=== PATIENT | male | born 1945 | race Caucasian/White ===

== ENCOUNTER → 2019-10-15 10:52 | Outpatient (BNVA) | payer OTHER, SELFPAY | PROVIDERS: Visit Provider Internal Medicine | DX: Z11.59 Encounter for screening for other viral diseases (principal) | CPT/HCPCS: 87635 ==

== ENCOUNTER 2020-03-22 10:24 | Outpatient (CLI) | payer OTHER, SELFPAY ==
--- NOTE | 2020-03-22 10:51 | MR_ITS ---
WS: [id number] MRI HEAD WITHOUT CONTRAST TECHNIQUE: Sagittal T1, T2 axial, T2 axial FLAIR, axial and coronal T1 images, axial susceptibility w eighted imaging, axial diffusion weighted images, and coronal T2 images were obtained. CLINICAL INFORMATION: HEADACHES COMPARISON: None. FINDINGS: No evidence of restricted diffusion to suggest acute ischemia. Ventricular system and basal cisterns are patent. Mild small vessel changes. Moderate parenchymal volume loss. Normal posterior fossa. Norm al vascular flow voids at the skull base. No extra axial fluid collections. No evidence of mass or ma ss effect. Mastoid air cells well aerated. Mild mucosal thickening in the ethmoid air cells. No hemos iderin on the susceptibly weighted images. Normal optic chiasm and pituitary infundibulum. Mild symmetric atrophy involving the temporal lobes a nd hippocampal formations. MR/MR head wo con* [id number] IMPRESSION: 1. No evidence of restricted diffusion to suggest acute ischemia. 2. Mild small vessel changes. Moderate parenchymal volume loss. 3. Mild mucosal thickening paranasal sinuses. Mastoid air cells well aerated. 4. No hemosiderin on the susceptibly weighted images. 5. Mild symmetric atrophy involving the temporal lobes and hippocampal formati ons.
--- NOTE | 2020-03-22 10:51 | MR_ITS ---
WS: [id number] MRA HEAD TECHNIQUE: Axial 3-D TOF images obtained with axial images and axial, sagittal, and coronal 2-D refor matted images. CLINICAL INFORMATION: HEADACHES COMPARISON: None. FINDINGS: Distal vertebral arteries are patent. Basilar artery is patent. Normal vascularity to the ENGINEERING SPECIALIST territo ry bilaterally. Both ICAs are patent at the skull base. Tortuous cavernous carotid arteries. Normal vascularity to th e MOIS[place] and MCA territories bilaterally. No evidence of high-grade proximal stenosis or aneurysm. No fl ow-limiting stenosis. MR/MR angio head con [id number] IMPRESSION: Normal intracranial MRA.
== END 2020-03-22 10:25 | disposition home or self-care (01) ==
PROVIDERS: Visit Provider Family Medicine
DX: R51.9 Headache, unspecified (principal); G31.9 Degenerative disease of nervous system, unspecified
CPT/HCPCS: 70544; 70551

== ENCOUNTER → 2020-11-04 09:35 | Outpatient (BNVA) | payer OTHER, SELFPAY | PROVIDERS: Visit Provider Surgery | DX: R93.3 Abnormal findings on diagnostic imaging of other parts of digestive tract (principal); Z20.822 Contact with and (suspected) exposure to COVID-19 | CPT/HCPCS: 87635 ==

== ENCOUNTER 2020-11-09 09:26 | Day surgery (SDC) | payer OTHER, MEDICARE, SELFPAY ==
[2020-11-02 14:45] VITALS: BMI 27.9
--- NOTE | 2020-11-09 10:11 | ANES.PREANE2 ---
Pre-Anesthetic Assessment Pre-Anesthetic Assessment: Height/Weight: Height 1.78 m Weight 88.451 kg Preop Diagnosis: Screening colonoscopy Proposed Procedure: Operation Date: 11/09/20 11:15 Proposed Procedures p Colonoscopy 11333 Z12.11(Not Applicable) - Karthik Christianson MD Familial anesthetic complications: None Was Beta Wendy taken within 24 hours: N/A Was Clonidine taken within 24 hours: N/A Last intake: . 8 hrs Social: Social History: No alcohol and No tobacco Exam: Pre-Anes Outpt Exam: alert, oriented x 3, clear to auscultation bilaterally and regular rate & rhythm Airway: MP: 2 Dentition: Full Anesthetic Plan: ASA status: 1 Anesthesia: MAC Risk of > 500 ml blood loss (7ml/kg in children): No PFSH Anesthesia PFSH: Medical History Hemorrhoids Social History Smoking and tobacco status: never smoked Data Anesthesia Cardiac Studies: No Data to Display
[2020-11-09 10:55] VITALS: BP 143/74; PULSE 57; RESP 18; TEMP 36.4; O2SAT 96
[2020-11-09] MEDS: sodium chloride 0.9% 1,000 ML 30 ML IV (10:58)
--- NOTE | 2020-11-09 11:42 | P.HP_ITS ---
Same Day Surgery H&P Indication for Procedure/HPI DATE OF PROCEDURE: November 09, 2020 CHIEF COMPLAINT/INDICATIONFOR SURGICAL PROCEDURE: I am here for colonoscopy PREOP DIAGNOSIS: Screening colonoscopy PLANNED PROCEDRUE: Operation Date: 11/09/20 11:15 Proposed Procedures p Colonoscopy 77030 Z12.11(Not Applicable) - Karthik Christianson MD This is a 74 years old gentleman presents to my practice with history of diverticulosis and symptomatic hemorrhoids per his description. An attempt of a colonoscopy was done back in 2018 and according to the patient he was told that his prep was suboptimal. And he should get his colonoscopy repeated. Patient comes today also complaining of some sort of fleshy fullness at the perianal ar ea that makes it harder for him to obtain appropriate hygiene. No evidence of bleeding per rectum. No recording of colon cancer Interim history 11/09/2020 Patient comes today for screening colonoscopy ROS All systems have been reviewed negative except as per the above or per problem list Medications/Allergies* Home Medications Medication Instructions Recorded Confirmed Type lovastatin 10 mg tablet 10 mg PO DAILY 09/19/20 11/09/20 History Allergies/Adverse Reactions Allergy/AdvReac Type Severity Reaction Status Date / Time No Known Allergies Allergy Unverified 11/09/20 11:46 Current Medications: Generic Name Dose Route Start Last Admin Trade Name Freq PRN Reason Stop Dose Admin Sodium Chloride 1,000 mls @ 30 mls/hr 11/09/20 09:45 11/09/20 10:58 Sodium Chloride 0.9% IV 11/10/20 09:44 30 mls/hr .Q24H PAULY Administration Pertinent History/Comorbid Conditions* Medical History (Updated 09/22/20 @ 12:45 by Karthik Christianson MD) Hemorrhoids Social History Smoking and tobacco status: never smoked Pertinent Exam Findings alert, oriented x 3, clear to auscultation bilaterally, regular rate & rhythm and procedure specific exam findings (Abdominal examination nontender nondistended soft) Recommendations Surgery/Procedure today (Colonoscopy with possible biopsy) Coding Level of Care Code Acute Shot Tube Machine Tender for Juliano Alcaraz
[2020-11-09 12:08] VITALS: BP 106/65; PULSE 52; RESP 14; TEMP 35.9; O2SAT 95
[2020-11-09 12:20] VITALS: BP 113/60; PULSE 55; RESP 18; O2SAT 96
--- NOTE | 2020-11-09 13:58 | ANE.PACU2 ---
Inpatient post-anesthesia follow up: Airway intact: Yes Vital signs: Temperature 96.7 F Pulse Rate 55 Respiratory Rate 18 Blood Pressure 113/60 Pulse Oximetry 96 Oxygen Delivery Me thod Room Air Oxygen Flow Rate 4 Fraction of Inspir ed Oxygen Hydration adequate: Yes Nausea and vomiting: No Pain level: 1 Mental status: Baseline
== END 2020-11-09 12:34 | disposition home or self-care (01) ==
PROVIDERS: PCP Family Medicine; Visit Provider Surgery
PROC: 0DJD8ZZ Inspection of Lower Intestinal Tract, Via Natural or Artificial Opening Endoscopic (ICD-10-PCS; CPT 45378; principal; 2020-11-09 11:15)
DX: Z12.11 Encounter for screening for malignant neoplasm of colon (principal); K57.30 Diverticulosis of large intestine without perforation or abscess without bleeding; K64.4 Residual hemorrhoidal skin tags
CPT/HCPCS: 45378; 96365; J2704; J7030

== ENCOUNTER → 2021-01-17 06:34 | Day surgery (SDC) | payer OTHER, SELFPAY ==
[2021-01-16 16:22] VITALS: BMI 27.9
--- NOTE | 2021-01-17 07:40 | PC.NURSE ---
patient to be put on schedule for next wednesday 01/24 due to no ride today
== END ==
PROVIDERS: PCP Family Medicine; Visit Provider Surgery
DX: K64.4 Residual hemorrhoidal skin tags (principal); Z53.8 Procedure and treatment not carried out for other reasons

== ENCOUNTER 2021-01-30 07:53 | Day surgery (SDC) | payer OTHER, SELFPAY ==
[2021-01-25 10:17] VITALS: BMI 27.9
[2021-01-30] VITALS (8 sets, daily range): BP systolic 88–152; BP diastolic 47–76; PULSE 45–56; RESP 16–20; TEMP 36.1–36.6; O2SAT 95–99
--- NOTE | 2021-01-30 09:12 | P.HP_ITS ---
Same Day Surgery H&P Indication for Procedure/HPI DATE OF PROCEDURE: January 30, 2021 CHIEF COMPLAINT/INDICATIONFOR SURGICAL PROCEDURE: My bottom is bothering PREOP DIAGNOSIS: Posterior anal skin tag PLANNED PROCEDRUE: Operation Date: 01/30/21 09:50 Proposed Procedures p Excision of Perianal Skin Tag 15220 K64.4(Not Applicable) - Karthik Christianson MD 11/24/2020 Patient has his follow-up today via telehealth status post colonoscopy and was found to have diverticulosis and a large posterior anal skin tag. Patient reports that the skin tag has been irritating him and takes whole lot effort to clean himself well. He is interested in surgical excision. Interim history 01/30/2021 Patient comes today for exam under anesthesia and excision of perianal skin tag ROS All systems have been reviewed negative except as per the above or per problem list Medications/Allergies* Home Medications Medication Instructions Recorded Confirmed Type lovastatin 10 mg tablet 10 mg PO DAILY 09/19/20 01/25/21 History omeprazole 10 mg PO DAILY 01/30/21 01/30/21 History Allergies/Adverse Reactions Allergy/AdvReac Type Severity Reaction Status Date / Time No Known Allergies Allergy Verified 01/30/21 09:20 Pertinent History/Comorbid Conditions* Medical History (Updated 11/26/20 @ 09:13 by Karthik Christianson MD) Hemorrhoids Social History Smoking and tobacco status: former smoker Pertinent Exam Findings alert, oriented x 3, regular rate & rhythm and procedure specific exam findings (Abdominal examination nontender nondistended soft) Recommendations Surgery/Procedure today (Excision of perianal skin tag) Coding Level of Care Code Acute Teacher Emotionally Impaired for Juliano Alcaraz
[2021-01-30] MEDS: sodium chloride 0.9% 1,000 ML 30 ML IV (09:42)
[2021-01-30] MEDS: acetaminophen 1,000 MG/100 ML PIGGYBACK 400 MG IV (09:43)
[2021-01-30] MEDS: piperacillin-tazobactam 3.375 GM in sodium chloride 0.9% (plus) 50 ML IV (09:57)
[2021-01-30] MEDS: lidocaine 2% INJ 20 mL INJECTION (10:20)
--- NOTE | 2021-01-30 10:42 | PM.OP ---
Operative Report Date of procedure: January 30, 2021 Pre-op Diagnosis: Posterior anal skin tag Post-op diagnosis: same Post-op Findings: Left posterior lateral perianal skin tag Procedure Done: 1-Examination under anesthesia 2-Excision of left posterior lateral perianal skin tag Implants: Packing using Xeroform and Surgicel Specimens removed/disposition: Left posterolateral perianal skin tag Surgeon: Karthik Christianson Director Of Industrial Relations: Lukasz Matthew Circulating nurse Minal Berry Anesthesia: MAC (civil engineering professional Jacob) Estimated blood loss (mL): 5 Condition: stable Disposition: same day Procedure: Patient was identified in the holding area and was taken back to the operating room, which he was first placed in supine position the left lateral position with all pressure points were padded, IV propofol was infused by the anesthesia provider, prophylactic IV antibiotics were given per protocol,Time-out was done verifying the patient's name/date of /planned procedure and destination after the procedure, all were in agreement. Prep and drape was done thereafter under the usual sterile technique of the anal and perianal area,started by pudendal nerve block bilaterally , injecting lidocaine 2% 10 mL each side , guided by the examining finger towards the ischial spine bilaterally, followed by that digital rectal examination showed no masses were appreciated or bleeding. There was evidence of larger left posterior lateral perianal skin tag. Anoscope was then introduced there was no evidence of other pathology. I did apply a hemostats at the origin of the perianal skin tag tissue ,using harmonic scalpel device for dissection safeguarding the external anal sphincter after that I was able to deliver the specimen to the circulating nurse hemostasis was achieved , and running 2-0 chromic catgut suture was applied to approximate the edges of the excision site, that was done after thorough irrigation of the wound with warm normal saline . There was no evidence of bleeding. I applied a piece of Xeroform impregnated lidocaine 2% jelly at the site of the wound and a piece of Surgicel both were rolled up as a Cigar like and and 2-0 silk stitch was applied at the end that faces the exit of the anus as it will be easier to pull out later on, followed by 4 x 4 application and ABD .,a surgical pants was then placed to hold the dressing in place. Count was completed at the end of the procedure, patient was then taken to the recovery room in stable condition I was present for the whole entire procedure.
--- NOTE | 2021-01-30 10:48 | ANES.PREANE2 ---
Pre-Anesthetic Assessment Pre-Anesthetic Assessment: Height/Weight: Height 1.78 m Weight 88.451 kg Temp Pulse Resp BP Pulse Ox 97.8 F 56 L 18 152/76 95 01/30/21 09:15 01/30/21 09:15 01/30/21 09:15 01/30/21 09:15 01/30/21 09:15 Preop Diagnosis: Posterior anal skin tag Proposed Procedure: Operation Date: 01/30/21 09:50 Proposed Procedures p Excision of Perianal Skin Tag 70044 K64.4(Not Applicable) - Karthik Christianson MD Was Beta Wendy taken within 24 hours: N/A Was Clonidine taken within 24 hours: N/A Last intake: Intake Last Liquid Date 01/30/21 Last Liquid Time 06:30 Last Solid Date 01/29/21 Last Solid Time 18:00 Social: Social History: No alcohol and No tobacco Exam: Pre-Anes Outpt Exam: alert, oriented x 3, clear to auscultation bilaterally and regular rate & rhythm Airway: Submandibular: WNL Cervical ROM: WNL MP: 2 Dentition: Caps GI: GI: GERD Metabolic: Metabolic: Hyperlipidemia Anesthetic Plan: ASA status: 2 Anesthesia: Choice Risk of > 500 ml blood loss (7ml/kg in children): No Meds/Allergies Current Medications: Current Medications Generic Name Dose Route Start Last Admin Trade Name Freq PRN Reason Stop Dose Admin Sodium Chloride 1,000 mls @ 30 ml s/hr 01/30/21 09:15 01/30/21 09:42 Sodium Chloride 0.9% IV 01/31/21 09:14 30 mls/hr .Q24H PAULY Administration PFSH Anesthesia PFSH: Medical History Hemorrhoids Social History (Updated 01/16/21 @ 16:18 by Cynthia Cross) Smoking and tobacco status: former smoker Data Anesthesia Cardiac Studies: No Data to Display
[2021-01-30] MEDS: HYDROcodone-acetaminophen 5-325 mg Tablet 1 TAB PO (11:44)
--- NOTE | 2021-01-30 13:48 | ANE.PACU2 ---
Inpatient post-anesthesia follow up: Airway intact: Yes Vital signs: Temperature 97.5 F Pulse Rate 48 Respiratory Rate 16 Blood Pressure 88/63 Pulse Oximetry 99 Oxygen Delivery Me thod Room Air Oxygen Flow Rate 3 Fraction of Inspir ed Oxygen Hydration adequate: Yes Nausea and vomiting: No Pain level: 2 Mental status: Baseline
== END 2021-01-30 12:00 | disposition home or self-care (01) ==
PROVIDERS: PCP Family Medicine; Visit Provider Surgery
PROC: (CPT 46220; principal; 2021-01-30 09:40)
DX: K64.4 Residual hemorrhoidal skin tags (principal); Z87.891 Personal history of nicotine dependence; K21.9 Gastro-esophageal reflux disease without esophagitis; E78.5 Hyperlipidemia, unspecified
CPT/HCPCS: 46220; 88304; 96365; J2250; J2543; J2704; J3010; J7030